=== PATIENT | female | born 1965 ===

== ENCOUNTER 2024-12-01 06:00 | Day surgery (SDC) | payer OTHER ==
[2024-11-18 09:23] LABS: HEMATOCRIT 45.3 % (36.0-45.00); HEMOGLOBIN 14.9 g/dL (12.0-15.00); MEAN CORPUSCULAR HEMOGLOBIN 28.9 pg (27.00-32.0); MEAN CORPUSCULAR HGB CONC 32.8 g/dl (32.0-36.0); PLATELET COUNT 225 K/uL (150-450); RED BLOOD COUNT 5.15 M/uL (4.00-6.00); RED CELL DISTRIBUTION WIDTH 13.7 % (11.5-14.5)
[2024-11-18 09:34] VITALS: BP 134/82
[2024-11-18 10:01] LABS: URINE APPEARANCE Clear; URINE BILIRRUBIN Negative (NEGATIVE); URINE BLOOD Negative; URINE COLOR Yellow; URINE GLUCOSE Negative (NEGATIVE); URINE KETONE Negative (NEGATIVE); URINE LEUKOCYTE Negative; URINE NITRATE Negative; URINE PROTEIN Negative (NEGATIVE); URINE UROBILINOGEN 0.2 E.U./dl
[2024-11-18 10:06] LABS: URINE BACTERIA 642.4 uL (0.0-1933); URINE EPITHELIAL CELLS 3.1 uL (0.0-38.8); URINE RBC 2.9 uL (0.0-20.8); URINE WBC 10.4 uL (0.0-23.2)
[2024-11-18 10:07] LABS: INR 0.94; PARTIAL THROMBOPLASTIN TIME 26.2 SECONDS (22.0-34.0); PROTHROMBIN TIME 10.3 SECONDS (9.0-11.5)
[2024-11-18 10:41] LABS: ALBUMIN 3.9 gm/dL (3.4-5.0); BILIRUBIN TOTAL 0.41 mg/dL (0.3-1.2); CALCIUM 9.6 mg/dL (8.5-10.1); CREATININE SERUM 1.05 mg/dL (0.55-1.02); GFR 54.21; GLOBULINA 3.5 G/DL (2.4-3.5); POTASSIUM 4.57 mEq/L (3.5-5.1); TOTAL PROTEIN 7.4 gm/dL (6.4-8.2); TSH 1.57 uIU/mL (0.358-3.74)
[~2024-12-01] VITALS: Ht 157.5 cm; Wt 69.9 kg
[~2024-12-01 06:00] MED LIST: ATACAND32 MG PO; HORIZANT300 MG PO; NORVASC5 MG PO
[2024-12-01] MEDS ORDERED: CEFOXITIN SODIUM 2,000 MG VIAL IV ONE (07:24)
[2024-12-01] MEDS ORDERED: POVIDONE-IODINE 118 ML BOTT TOP ONE (07:32)
[2024-12-01] MEDS ORDERED: CHLORHEXIDINE GLUCONATE 120 ML BOTTLE TOP ONE (07:32)
[2024-12-01] MEDS ORDERED: PROMETHAZINE HCL 50 MG/ML AMPUL IM ONE (08:45)
[2024-12-01] MEDS ORDERED: MORPHINE SULFATE 4 MG/ML VIAL IV PRN (08:45)
[2024-12-01] MEDS ORDERED: DOXYCYCLINE HY100 M2 PO (08:46)
[2024-12-01] MEDS ORDERED: NAPR500T14 PO (08:46)
[2024-12-01 10:28] VITALS: BP 118/60; O2SAT 100
== END 2024-12-01 13:15 | disposition home or self-care (01) ==
LOC: CIR.AMB 06:00 → EDSTATUS 07:45 → OB/GYN 07:45 → CIR.AMB 07:45
PROVIDERS: ATTEND Obstetrics & Gynecology
DX: N95.0 Postmenopausal bleeding (principal); N88.2 Stricture and stenosis of cervix uteri; D25.0 Submucous leiomyoma of uterus; I10 Essential (primary) hypertension; K21.9 Gastro-esophageal reflux disease without esophagitis